=== PATIENT | male | born 1970 | race Caucasian/White ===

== ENCOUNTER 2020-04-10 23:54 | Emergency (ER) | payer OTHER ==
[~2020-04-10] VITALS: Ht 170.2 cm; Wt 120.2 kg
[2020-04-11] MEDS ORDERED: ONDANSETRON ODT 4 MG TAB PO ONE ×2 (02:46→07:00)
[2020-04-11 03:42] LABS: Basophils # (auto) 0 10 ^3/uL (0-0.2); Basophils % (auto) 0.4 % (0.0-2.0); Eosinophils # (auto) 0 10 ^3/uL (0-0.8); Hematocrit 51.7 % (41.0-53.0); Hemoglobin 17.6 g/dL (13.5-17.5); Lymphocytes # (auto) 0.8 10 ^3/uL (0.4-5.4); Lymphocytes % (auto) 20.8 % (10.0-50.0); Mean Corpuscular Volume 88.1 fL (80.0-100.0); Monocytes # (auto) 0.5 10 ^3/uL (0-1.3); Monocytes % (auto) 12.6 % (0.0-12.0); Neutrophils # (auto) 2.5 10 ^3/uL (1.6-8.6); Neutrophils % (auto) 66.2 % (37.0-80.0); Nucleated Red Blood Cells % 0.1 %; Platelet Count (auto) 180 10^3/uL (140-450); Red Blood Cells 5.87 10^6/uL (4.5-5.90); Red Cell Distribution Width 13.6 % (11.8-14.3); White Blood Cell 3.8 10^3/uL (4.4-10.8)
[2020-04-11 04:04] LABS: Albumin 4.1 g/dL (3.4-5.0); BUN/Creatinine Ratio 14.4; Calcium 8.5 mg/dL (8.5-10.1); Potassium 3.8 mmol/L (3.5-5.1)
[2020-04-11 04:06] LABS: Bilirubin, Total 0.8 mg/dL (0.2-1.0); Total Protein 8.5 g/dL (6.4-8.2)
[2020-04-11 05:30] VITALS: BP 108/75
[2020-04-11] MEDS ORDERED: ACETAMINOPHEN 500 MG TAB PO ONE ×2 (05:41→07:00)
== END 2020-04-11 07:59 | disposition home or self-care (01) ==
LOC: ER 23:58
DX: J18.1 Lobar pneumonia, unspecified organism (principal); U07.1 COVID-19; J32.0 Chronic maxillary sinusitis
CPT/HCPCS: 36415; 71045; 80053; 82728; 85025; 87070; 87804; 87880; 99284; C9803; Q0162; U0003